=== PATIENT | male | born 1955 | race Caucasian/White ===

== ENCOUNTER 2020-05-14 12:41 | Outpatient (REF) | payer OTHER, BC, SELFPAY | END 2020-05-14 12:42 | disposition home or self-care (01) | LOC: HO.LNP 12:41 | PROVIDERS: PCP Internal Medicine; Visit Provider Surgery | DX: Z13.89 Encounter for screening for other disorder (principal) ==

== ENCOUNTER 2020-05-14 15:22 | Outpatient (REF) | payer OTHER, SELFPAY | END 2020-05-14 15:23 | disposition home or self-care (01) | LOC: HO.LAB 15:22 | PROVIDERS: Visit Provider Surgery | DX: M79.5 Residual foreign body in soft tissue (principal) | CPT/HCPCS: 88300 ==

== ENCOUNTER 2020-06-18 17:00 | Outpatient (REF) | payer OTHER, SELFPAY | END 2020-06-18 17:01 | disposition home or self-care (01) | LOC: HO.LNP 17:00 | PROVIDERS: Visit Provider Internal Medicine | DX: L02.611 Cutaneous abscess of right foot (principal) | CPT/HCPCS: 87071; 87077; 87186; 87205 ==

== ENCOUNTER 2021-01-04 14:11 | Outpatient (REF) | payer BC, SELFPAY ==
[2021-01-04 15:07] LABS: Influenza A PCR NEGATIVE (Negative); Influenza B PCR NEGATIVE (Negative); Resp Syncy Virus RNA Qual PCR NEGATIVE (Negative); SARS COV2 PCR INHOUSE NEGATIVE (Negative)
== END 2021-01-04 14:12 | disposition home or self-care (01) ==
LOC: HO.LNP 14:11
PROVIDERS: Visit Provider Internal Medicine
DX: Z20.822 Contact with and (suspected) exposure to COVID-19 (principal); R51.9 Headache, unspecified
CPT/HCPCS: 0241U

== ENCOUNTER 2021-01-14 14:57 | Outpatient (REF) | payer BC, SELFPAY ==
[2021-01-14 15:15] LABS: MANUAL DIFF FLAG NO
[2021-01-14 15:56] LABS: Basophils Percent Auto 0.7 % (0-2); Eosinophils Absolute Auto 0.1 X10*3/uL (0.0-0.4); Eosinophils Percent Auto 1.2 % (0-4); Hematocrit 40.9 % (42.0-52.0); Hemoglobin 13.4 g/dl (14.0-18.0); Imm Gran Abs Auto 0.01 X10*3/uL (0.00-0.03); Imm Gran Pct Auto 0.2 % (0.0-0.4); Lymphocytes Absolute Auto 1.4 X10*3/uL (1.2-4.9); Lymphocytes Percent Auto 23.3 % (20-40); Mean Corpuscular HGB Conc 32.8 g/dl (31.0-36.0); Mean Corpuscular Hemoglobin 29.7 pg (27.0-33.0); Mean Corpuscular Volume 90.7 fL (80.0-98.0); Mean Platelet Volume 9.9 fL (9.4-12.4); Monocytes Absolute Auto 0.3 X10*3/uL (0.1-1.2); Monocytes Percent Auto 5.3 % (2-11); Neutrophils Absolute Auto 4.18 x10*3/uL (2.0-8.3); Neutrophils Percent Auto 69.3 % (45-73); Platelet Count 242 X10*3/uL (160-400); Red Blood Count 4.51 X10*6/uL (4.60-5.80); Red Cell Distribution Width 13.1 % (11.0-16.0)
[2021-01-14 16:17] LABS: Appearance Urine CLEAR; Color Urine YELLOW; Glucose Urine UA NEG (NEG); Leukocyte Esterase Urine NEG (NEG); Nitrite Urine NEG (NEG); PH 5.5 (5.0-8.0); Specific Gravity - Urine >= 1.030 (1.005-1.025); Urine Blood NEG (NEG); Urine Ketones NEG (NEG); Urine Protein 1+ MG/DL (NEG-TRACE)
[2021-01-14 16:21] LABS: Albumin Level 4.4 g/dL (3.5-5.0); Anion Gap 14 (12-20); Blood Urea Nitrogen 22 mg/dL (9-16); Calcium 9.2 mg/dL (8.4-10.2); Carbon Dioxide 27 mmol/L (22-29); Chloride 106 mmol/L (96-108); Estimated Glomerular Filt Rate > 60; Phosphorus 4.7 mg/dL (2.7-4.5); Potassium 4.7 mmol/L (3.3-5.1); Sodium 142 mmol/L (135-145); Total Protein 7.4 g/dL (6.5-8.0)
[2021-01-14 16:25] LABS: RBC Urine 0 /HPF (0); Squamous Epithelial Cell Urine 1+ /LPF; WBC Urine 0 /HPF (0-4)
[2021-01-14 16:36] LABS: Creatinine Urine 197.15 mg/dL; Protein/Creatinine Ratio, Ur 0.13 (<0.2); Total Protein Urine Random 25 mg/dL (<12)
[2021-01-14 17:25] LABS: Renal w Reflex Lab Use Only Order verified
== END 2021-01-14 14:58 | disposition home or self-care (01) ==
LOC: HO.LAB 14:57
PROVIDERS: PCP Internal Medicine; Visit Provider Internal Medicine Nephrology
DX: R80.9 Proteinuria, unspecified (principal); M32.9 Systemic lupus erythematosus, unspecified
CPT/HCPCS: 36415; 80051; 81001; 82040; 82043; 82310; 82565; 83735; 84100; 84155; 84156; 84520; 85025

== ENCOUNTER 2021-05-28 14:01 | Outpatient (REF) | payer BC, SELFPAY ==
--- NOTE | ~2021-05-28 | XR_ITS ---
EXAMINATION: XR SHOULDER, RIGHT CLINICAL INFORMATION: Status post fall, right shoulder pain COMPARISON: None TECHNIQUE: AP external rotation, Grashey, scapular Y, and axillary views of the right shoulder. FINDINGS: The bones and soft tissues are normal. No fracture. Glenohumeral and acromioclavicular alignment is anatomic with normal joint space. No abnormal soft tissue calcifications. XR/XR shoulder RT min 2V IMPRESSION: Unremarkable right shoulder exam
== END 2021-05-28 14:02 | disposition home or self-care (01) ==
LOC: HO.XRAY 14:01
PROVIDERS: PCP Internal Medicine; Visit Provider Internal Medicine
DX: M25.511 Pain in right shoulder (principal); Z91.81 History of falling
CPT/HCPCS: 73030

== ENCOUNTER 2021-06-17 11:19 | Day surgery (SDC) | payer BC, SELFPAY ==
--- NOTE | 2021-06-14 09:33 | P.CONAN_ITS ---
Documented by User: Eve Shields NP 06/14/21 09:34 HPI - Anesthesia Eval Consult details Narrative: 66yo M for Colonoscopy Prednisone 2.5mg daily (lupus) PMFSH Active Problems Active Problems: All Active Problems (Updated 06/11/21 @ 15:48 by Nancy Perry RN) Foreign body (FB) in soft tissue (Acute) Past Medical History Medical History (Updated 06/11/21 @ 15:48 by Nancy Perry RN) Elevated cholesterol Foreign body (FB) in soft tissue History of myocardial infarction Hx of Lyme disease Lupus On beta vera at home Family History Family History Father History of diabetes mellitus Mother History of hypertension Surgical History Surgical History (Updated 06/11/21 @ 15:46 by Nancy Perry RN) History of carpal tunnel surgery History of knee surgery History of microdiscectomy History of shoulder surgery History of surgery on arm Hx of colonoscopy Social History Social History Alcohol intake: current Alcohol intake frequency: holidays/special occasions only Patient Tobacco Use Status: Never used Tobacco Use of substances other than those prescribed or required for medical reasons: No Are you DNR?: No Advance Directives: No Advance Directives Information Provided: Yes Recently lost weight without trying: No Nutrition Risks: No Nutritional Risk Meds Allergies Allergy/AdvReac Type Severity Reaction Status Date / Time ciprofloxacin [From Cipro] Allergy Mild RASH Verified 06/17/21 11:50 Penicillins Allergy Mild RASH Verified 06/17/21 11:50 Sulfa (Sulfonamide Allergy Unknown Rash Verified 06/17/21 11:50 Antibiotics) Home Medications Medication Instructions Recorded Confirmed Last Taken Type aspirin 81 mg tablet,delayed 81 mg PO DAILY 05/14/20 06/11/21 Unknown History release (Adult Low Dose Aspirin) atorvastatin 80 mg tablet 80 mg PO DAILY 05/14/20 06/11/21 Unknown History doxycycline hyclate 100 mg capsule 100 mg PO BID 05/14/20 06/11/21 Unknown History hydroxychloroquine 200 mg tablet 200 mg PO BID 05/14/20 06/11/21 06/17/21 History metoprolol succinate 25 mg 25 mg PO DAILY 03/01/21 03/29/22 04/04/22 History tablet,extended release 24 hr prednisone 2.5 mg tablet 2.5 mg PO QAM 05/14/20 06/11/21 06/17/21 History Exam Exam Date and Time: June 14, [id number] Pertinent Lab Results Pertinent Lab Results: Laboratory Tests 01/14/21 01/14/21 15:13 15:13 WBC 6.0 Hgb 13.4 L Hct 40.9 L Plt Count 242 Sodium 142 Potassium 4.7 Chloride 106 Carbon Dioxide 27 BUN 22 H Creatinine 1.12 Assessment and Plan Assessment Anesthesia Assessment: Chart Reviewed Documented by User: Sha Malloy MD 06/17/21 21:17 HPI - Anesthesia Eval Consult details Narrative: 66yo M for Colonoscopy silent [place] , 5 years ago . Prednisone 2.5mg daily (lupus) [facility] Past Medical History Medical History (Updated 06/11/21 @ 15:48 by Nancy Perry RN) Elevated cholesterol Foreign body (FB) in soft tissue History of myocardial infarction Hx of Lyme disease Lupus On beta vera at home Functional capacity: independent ambulation Family History Family History Father History of diabetes mellitus Mother History of hypertension Family history of problems with anesthesia: Yes (Brother under anesthesia . ) Surgical History Surgical History (Updated 06/11/21 @ 15:46 by Nancy Perry RN) History of carpal tunnel surgery History of knee surgery History of microdiscectomy History of shoulder surgery History of surgery on arm Hx of colonoscopy History of Problems with Anesthesia: No Social History Social History Alcohol intake: current Alcohol intake frequency: holidays/special occasions only Patient Tobacco Use Status: Never used Tobacco Use of substances other than those prescribed or required for medical reasons: No Are you DNR?: No Advance Directives: No Advance Directives Information Provided: Yes Recently lost weight without trying: No Nutrition Risks: No Nutritional Risk Meds Allergies Allergy/AdvReac Type Severity Reaction Status Date / Time ciprofloxacin [From Cipro] Allergy Mild RASH Verified 06/17/21 11:50 Penicillins Allergy Mild RASH Verified 06/17/21 11:50 Sulfa (Sulfonamide Allergy Unknown Rash Verified 06/17/21 11:50 Antibiotics) Home Medications Medication Instructions Recorded Confirmed Last Taken Type aspirin 81 mg tablet,delayed 81 mg PO DAILY 05/14/20 06/11/21 Unknown History release (Adult Low Dose Aspirin) atorvastatin 80 mg tablet 80 mg PO DAILY 05/14/20 06/11/21 Unknown History doxycycline hyclate 100 mg capsule 100 mg PO BID 05/14/20 06/11/21 Unknown History hydroxychloroquine 200 mg tablet 200 mg PO BID 05/14/20 06/11/21 06/17/21 History metoprolol succinate 25 mg 25 mg PO DAILY 05/14/20 06/11/21 06/17/21 History tablet,extended release 24 hr prednisone 2.5 mg tablet 2.5 mg PO QAM 05/14/20 06/11/21 06/17/21 History Exam Airway Mallampati Class: III TM Dist: >3cm Neck ROM: Full Loose/Missing/Broken Teeth: Yes (Chipped ) Heart: rrr Lungs: b/l breath sounds Assessment and Plan Assessment Anesthesia Assessment: Anesthesia Plan Discussed Final Anesthetic Review Family History of Problems with Anesthesia: Yes (Brother under anesthesia . ) History of Problems with Anesthesia: No NPO: Yes ASA Class: III Final Preanesthetic Review: Meds/Allgs Chart Reviewed, Consent Obtained/Reviewed and Anes Risks/Benef Reviewed Patient Risk: Intermediate Procedure Risk: Intermediate Anesthetic Plan Anesthetic Plan: MAC: Disposition: Standard PACU
[2021-06-17 11:53] VITALS: BMI 28.8
[2021-06-17 12:01] VITALS: BP 133/65; PULSE 76; RESP 16; TEMP 36.5; O2SAT 94
[2021-06-17] MEDS: Lactated Ringers 1,000 ML 100 ML IVCONT (12:17)
[2021-06-17 14:12] VITALS: BP 108/59; PULSE 54; RESP 14; TEMP 36.3; O2SAT 96
--- NOTE | 2021-06-17 14:12 | PM.OP ---
Brief Operative Note Date of Service: 06/17/21 Pre-op diagnosis: Screening Post-op diagnosis: other (Diverticulosis) Procedure: Colonoscopy to the cecum and TI Surgeon: Ezequiel Aguayo Anesthesia: MAC Was an Rubber Belt Splicer used for this Procedure?: No Estimated blood loss (mL): 0 Pathology: none sent Condition: stable Disposition: PACU
[2021-06-17 14:27] VITALS: BP 103/62; PULSE 62; RESP 18; TEMP 36.2; O2SAT 97
--- NOTE | 2021-06-18 01:01 | OP_ITS ---
SURGEON: Ezequiel Aguayo MD INDICATIONS: The patient presents for evaluation of colorectal cancer screening. Full consent obtained from him for this, including risks of bleeding and perforation. PREOPERATIVE DIAGNOSIS: Colorectal cancer screening. POSTOPERATIVE DIAGNOSIS: PROCEDURE PERFORMED: Colonoscopy to the cecum and terminal ileum. ESTIMATED BLOOD LOSS: COMPLICATIONS: ANESTHESIA: Monitored anesthesia care. ASSISTANTS: SPECIMENS: POSTOPERATIVE DIAGNOSES: Colorectal cancer screening, sigmoid diverticulosis, and internal hemorrhoids. DESCRIPTION OF PROCEDURE: The patient was placed in the left lateral decubitus position. The digital rectal exam revealed no abnormalities. The Olympus video pediatric colonoscope was entered into the rectum advanced easily to the cecum. Once in the cecum, I did identify normal-appearing cecal pouch with appendiceal orifice and a normal-appearing ileocecal valve. The terminal ileum was cannulated and appeared normal. Scope was withdrawn back in the colon. The entire cecum and ileocecal valve appeared normal. The scope was slowly withdrawn assessing all mucosal surfaces carefully. Preparation was excellent. I did not visualize any sign of polyps, colitis, nor angiodysplasia. There was a mild amount of sigmoid diverticulosis. In the rectum, scope was retroflexed visualizing internal hemorrhoids, but no other pathology. The rectal mucosa appeared normal. Scope was straightened and withdrawn from the patient. He tolerated the procedure well and was returned to the recovery area in stable condition. IMPRESSION: 1. Diverticulosis. 2. Internal hemorrhoids. PLAN: Given the negative exam and negative family history, I would recommend a followup colonoscopy in 10 years. He will otherwise see me on a p.r.n. basis. He was advised to resume his aspirin today. MD JUN Lozoya/SERA / [id number]
== END 2021-06-17 15:23 | disposition home or self-care (01) ==
PROVIDERS: PCP Internal Medicine; Visit Provider Internal Medicine
PROC: 0DJD8ZZ Inspection of Lower Intestinal Tract, Via Natural or Artificial Opening Endoscopic (ICD-10-PCS; CPT 45378; principal; 2021-06-17 12:40)
DX: Z12.11 Encounter for screening for malignant neoplasm of colon (principal); K57.30 Diverticulosis of large intestine without perforation or abscess without bleeding; K64.8 Other hemorrhoids; I25.2 Old myocardial infarction; M32.8 Other forms of systemic lupus erythematosus; Z86.19 Personal history of other infectious and parasitic diseases; Z79.82 Long term (current) use of aspirin; Z79.899 Other long term (current) drug therapy
CPT/HCPCS: 45378

== ENCOUNTER 2021-11-22 16:36 | Outpatient (REF) | payer BC, SELFPAY ==
[2021-11-22 17:24] LABS: Influenza A PCR NEGATIVE (Negative); Influenza B PCR NEGATIVE (Negative); Resp Syncy Virus RNA Qual PCR NEGATIVE (Negative); SARS COV2 PCR INHOUSE POSITIVE (Negative)
== END 2021-11-22 16:37 | disposition home or self-care (01) ==
LOC: HO.LNP 16:36
PROVIDERS: Visit Provider Internal Medicine
DX: Z20.822 Contact with and (suspected) exposure to COVID-19 (principal); R05.9 Cough, unspecified
CPT/HCPCS: 0241U

== ENCOUNTER 2022-01-29 16:09 | Outpatient (REF) | payer BC, SELFPAY ==
[2022-01-29 17:16] LABS: Influenza A PCR NEGATIVE (Negative); Influenza B PCR NEGATIVE (Negative); Resp Syncy Virus RNA Qual PCR NEGATIVE (Negative); SARS COV2 PCR INHOUSE NEGATIVE (Negative)
== END 2022-01-29 16:10 | disposition home or self-care (01) ==
LOC: HO.LNP 16:09
PROVIDERS: Visit Provider Internal Medicine
DX: R05.9 Cough, unspecified (principal); R06.2 Wheezing; Z20.822 Contact with and (suspected) exposure to COVID-19
CPT/HCPCS: 0241U

== ENCOUNTER 2023-06-26 15:24 | Outpatient (REF) | payer MEDICARE, SELFPAY | END 2023-06-26 15:25 | disposition home or self-care (01) | LOC: HO.LNP 15:24 | PROVIDERS: Visit Provider Internal Medicine | DX: Z22.322 Carrier or suspected carrier of Methicillin resistant Staphylococcus aureus (principal) | CPT/HCPCS: 87081 ==

== ENCOUNTER 2024-02-15 14:05 | Outpatient (REF) | payer MEDICARE, SELFPAY ==
[2024-02-15 16:03] LABS: Appearance Urine Clear; Color Urine Yellow; Glucose Urine UA Negative (Negative); Leukocyte Esterase Urine Negative (Negative); Nitrite Urine Negative (Negative); PH 5.5 (5.0-9.0); Specific Gravity - Urine 1.025 (1.005-1.025); Urine Blood Negative (Negative); Urine Ketones Trace mg/dL (Negative); Urine Protein Trace mg/dL (Neg-Trace)
[2024-02-15 17:12] LABS: Anion Gap 13 (12-20); Blood Urea Nitrogen 23 mg/dL (9-16); Calcium 9.2 mg/dL (8.4-10.2); Carbon Dioxide 26 mmol/L (22-29); Chloride 105 mmol/L (96-108); Estimated Glomerular Filt Rate 59; Sodium 140 mmol/L (135-145)
[2024-02-15 17:15] LABS: Creatinine Urine 158.74 mg/dL; Microalbum/Creatinine Ratio Ur 52.9 ug/mg cr (<30); Total Protein Urine Random 16 mg/dL (<12)
== END 2024-02-15 14:06 | disposition home or self-care (01) ==
LOC: HO.LAB 14:05
PROVIDERS: PCP Internal Medicine; Visit Provider Internal Medicine Nephrology
DX: R80.1 Persistent proteinuria, unspecified (principal); M32.9 Systemic lupus erythematosus, unspecified
CPT/HCPCS: 36415; 80051; 81003; 82043; 82310; 82565; 82570; 84156; 84520

== ENCOUNTER 2024-10-27 14:12 | Outpatient (AMB) | payer MEDICARE, SELFPAY ==
--- NOTE | 2024-10-27 14:47 | A.OFFPC_ITS ---
Vital Signs 10/27/24 15:00 Height 6 ft 1 in Weight 199 lb 2 oz BMI 26.3 BP 112/60 Blood Pressure Location Rt brachial Pulse 63 Pulse Source Pulse Oximeter Temp 97.0 F Temp Source Temporal Artery Scan Pulse Oximetry (%) 96 Oxygen Delivery Method Room Air Intake Visit Reasons: [employer] Intake Note: Jerrod presents in the office today to establish care. Allergies ciprofloxacin (From Cipro) Allergy (Mild, Verified 10/27/24 14:48) RASH Penicillins Allergy (Mild, Verified 10/27/24 14:48) RASH Sulfa (Sulfonamide Antibiotics) Allergy (Unknown, Verified 10/27/24 14:48) Rash Medication List - Last Reconciled 10/27/24 by Criss Persaud PA-C antiarthritic combination no.2 (glucosamine-chondroitin) mg PO aspirin (Adult Low Dose Aspirin) 81 mg PO DAILY atorvastatin 80 mg PO DAILY cholecalciferol (vitamin D3) 125 mcg PO DAILY hydroxychloroquine 200 mg PO BID metoprolol succinate ER 25 mg PO DAILY multivitamin (Daily Multi-Vitamin tablet) 1 tab PO DAILY omega-3 fatty acids 500 mg PO DAILY prednisone Patient takes 3.0 mg orally every morning; Tobacco use date assessed: 10/27/24 Dental Screening Dental Screen Date: 10/27/24 Did you have a dental visit in the last 12 months?: Yes Did you have a dental problem in the last 6 months where you did not have access to dental care?: Yes Was dental information given to patient?: Patient has dentist HPI [employer] HPI Details Pt is a 69 y/o male who presents today to establish care. He has a hx of lyme disease, lupus, previous VA, CKD Rheum: lupus was triggered by lyme. He is following with [facility] gen rheumatology, Dr. Chung. He is on hydroxychloroquine. Pulm: saw Dr. Silva following lupus dx and has not needed to been seen since 2021. CV: He follows with Dr. Marcus for the last 10 years due to previous VA. He is on metoprolol 25 mg, atorvastatin 80 mg, and aspirin. Nephro: stable CKD. Managed by Dr. Schaffer. Colonoscopy: 2020 UTD, cologuard PSA: overdue Ophthamology: Dr. Lopez [facility] Medical History (Updated 10/27/24 @ 15:14 by Criss Persaud PA-C) Elevated cholesterol On beta vera at home Lupus History of myocardial infarction Hx of Lyme disease Foreign body (FB) in soft tissue Surgical History (Updated 09/20/24 @ 13:12 by Sandhya Sandra) Hx of colonoscopy (~06/18/21) History of surgery on arm History of microdiscectomy History of knee surgery History of carpal tunnel surgery History of shoulder surgery Family History (Updated 10/27/24 @ 14:59 by Sydney Matthews MA) Father History of diabetes mellitus History of hypertension Hyperlipemia Cardiovascular disease Mother History of hypertension History of diabetes mellitus Hyperlipemia Cardiovascular disease FHx: mental illness Dementia Maternal Grandfather Cardiovascular disease Heart attack Maternal Grandmother Cardiovascular disease Heart attack Paternal Grandmother Cardiovascular disease Heart attack Social History (Updated 10/27/24 @ 14:59 by Sydney Matthews MA) Housing: House Alcohol intake: current Alcohol intake frequency: holidays/special occasions only Patient Tobacco Use Status: Never used Tobacco e-Cigarette/Vaping Use: Never Used Second Hand Smoke Exposure: No service: No Current occupational status: retired Current occupational exposures/hazards: No Cognitive needs: No Hearing needs: No Vision needs: No Questionnaire PHQ-9 Over the last 2 weeks, how often have you been bothered by any of the following problems? 1. Little interest or pleasure in doing things: not at all 2. Feeling down, depressed, or hopeless: not at all 3. Trouble falling or staying asleep, or sleeping too much: not at all 4. Feeling tired or having little energy: not at all 5. Poor appetite or overeating: not at all 6. Feeling bad about yourself - or that you are a failure or have let yourself or your family down: not at all 7. Trouble concentrating on things, such as reading the newspaper or watching television: not at all 8. Moving or speaking so slowly that other people could have noticed. Or the opposite - being so fidgety or restless that you have been moving around a lot more than usual: not at all 9. Thoughts that you would be better off or of hurting yourself in some way: not at all Total score: 0 Depression Screening Interpretation: Negative Depression Screening Done: Yes 53924 - PHQ-9 Billing: Yes Source: Developed by Drs. Ezequiel Felix, Clari Wolfe, Jus Almeida and colleagues, with an educational baljit from [employer]. Thrive Questionnaire Date Thrive assessed: 10/27/24 I am a: Patient What is your living situation today?: I have a steady place to live Within the past 12 months, did the food you bought not last and you didn't have the money to get more?: Never true Within the past 12 months, did you worry whether your food would run out before you got money to buy more?: Never true Do you have trouble paying for medicines?: No Do you have trouble getting transportation to medical appointments?: No Do you have trouble paying your heating and electricity bill?: No Do you have trouble taking care of your child, family member or friend?: No Do you have trouble with day-to-day activities such as bathing, preparing meals, shopping, managing finances, etc.?: No Are you currently unemployed and looking for a job?: No Are you interested in more education?: No Please select the resources that you would like help with: None Currently or been in a relationship where the following occur: No concerns reported THRIVE Score: 0 AUDIT C Alcohol Use Questionnaire (AUDIT-C) 1. How often do you have a drink containing alcohol?: 2-4 times a month 2. How many drinks containing alcohol do you have on a typical day when you are drinking?: 1 or 2 3. How often do you have six or more drinks on one occasion?: Never Total Score: 2 GINI-7 AMB Questionnaire GINI-7 Date GINI - 7 assessed: 10/27/24 Feeling nervous, anxious, or on edge: 0 = Not at all Not being able to stop or control worryin = Not at all Worrying too much about different things: 0 = Not at all Trouble relaxin = Not at all Being so restless that it is hard to sit still: 0 = Not at all Becoming easily annoyed or irritable: 0 = Not at all Feeling afraid as if something awful might happen: 0 = Not at all Total GINI-7 score (0-4 normal; 5-9 mild; 10-14 moderate; 15-21 severe): 0 Source: Developed by Clari Mcknight Kurt Kroenke and colleagues, with an educational baljit from [employer]. GINI-7 Assessment Billing GINI-7 Assessment Tool: GINI-7 Assessment 16537 Physical exam (Primary Care) Vital Signs: Last Vital Signs Temp 97.0 F 10/27/24 15:00 Pulse 63 10/27/24 15:00 BP 112/60 10/27/24 15:00 Pulse Ox 96 10/27/24 15:00 Oxygen Delivery Method Room Air 10/27/24 15:00 BMI result Body Mass Index 26.3 Tobacco/Smoking Status: Tobacco use Status Tobacco use date assessed 10/27/24 10/27/24 15:02 Patient Tobacco Use Status Never used Tobacco 10/27/24 15:02 e-Cigarette/Vaping Use Never Used 10/27/24 15:02 PHQ-9: PHQ-9 Score PHQ-9: Total score 0 10/27/24 15:02 Depression Screening Interpretation: Negative Thrive Assessment: Date of Thrive Assessment Date Thrive assessed 10/27/24 10/27/24 15:02 Currently or been in a relationship where the following occur: No concerns reported Const Orientation/consciousness: patient oriented x3 HENMT Ears: hearing grossly normal bilaterally Neck Thyroid: Thyroid normal Lymphatic: no lymphadenopathy noted Resp Auscultation: clear to auscultation bilaterally Cardio Rate: regular rate Rhythm: regular rhythm Heart sounds: S1 normal heart sound present and S2 normal heart sound present GI Inspection: Yes normal to inspection Palpation (GI): Soft to palpation and Other GI palpation findings present (nontender, no cva tenderness) Auscultation: normoactive bowel sounds Rectal Exam - Male: Yes deferred Skin General skin exam: no rashes or lesions noted Neuro General: patient oriented x3, gait normal and no focal motor deficits Coding Level of Care Code New Pt Level 3 (26054) Complex EM visit Add On G2211 Diagnoses Hyperlipidemia E78.5 Lupus (systemic lupus erythematosus) M32.9 CKD (chronic kidney disease) stage 3, GFR 30-59 ml/min N18.30 Additional Codes GINI-7 Assessment Billing - GINI-7 Assessment Tool: GINI-7 Assessment 37497 ([id number]) PHQ-9 - 44769 - PHQ-9 Billing: Yes ([id number]) Assessment & Plan Assessment & Plan (1) Hyperlipidemia: Code(s): E78.5 - Hyperlipidemia, unspecified Category: Medical Plan: On atorvastatin 80 mg. We will check lipids and LFTs. (2) Lupus (systemic lupus erythematosus): Code(s): M32.9 - Systemic lupus erythematosus, unspecified Category: Medical Plan: Being managed by [facility] (3) CKD (chronic kidney disease) stage 3, GFR 30-59 ml/min: Code(s): N18.30 - Chronic kidney disease, stage 3 unspecified Category: Medical Plan: Has been stable. Following with Nephrology. Avoids NSAIDs. Plan Labs ordered today. We will follow up pending test results. Orders: Orders Comprehensive [place]. Panel Fast 10/27/24 E78.5 - Hyperlipidemia, unspecified, M32.9 - Systemic lupus erythematosus, unspecified, N18.30 - Chronic kidney disease, stage 3 unspecified Lipid Panel 10/27/24 E78.5 - Hyperlipidemia, unspecified, M32.9 - Systemic lupus erythematosus, unspecified, N18.30 - Chronic kidney disease, stage 3 unspecified TSH reflex Free T4 10/27/24 E78.5 - Hyperlipidemia, unspecified, M32.9 - Systemic lupus erythematosus, unspecified, N18.30 - Chronic kidney disease, stage 3 unspecified Prostate Specific Antigen Scr 10/27/24 E78.5 - Hyperlipidemia, unspecified, M32.9 - Systemic lupus erythematosus, unspecified, N18.30 - Chronic kidney disease, stage 3 unspecified, Z01.89 - Encounter for other specified special examinations
--- OUTSIDE RECORDS SUMMARY | 2024-10-27 14:59 | XMS_ITS | Patient Health Record ---
[facility] Address [address] [place] [address] Care Team Providers Care Dietitian Assistant Name Role Phone Christopher Garcia MD Primary Care Provider Unavaila suellen Black, Jill Unavailable [phone] Allergies Allergen (clinical drug ingredient) Drug/Non Drug Allergy documented on EMR Reaction Allergy Type Onset Date Status Penicillin Unknown Drug Allergy Active Substance with sulfonamide structure and antibacterial mechanism of action (substance) Sulfa Antibiotics Unknown Drug Allergy Active Reason For Referral No Information Medications Medication SIG (Take, Route, Frequency, Duration) Notes Start Date End Date Status Vitamin D Active Baby Aspirin Active Doxycycline Hyclate 100 MG Oral; Duration: 10 Active Glucosamine Chondr 500 Complex - as directed Orally Active Daily Vitamin - 1 tablet Orally Once a day; Duration: 30 day(s) Active predniSONE 2.5 MG 1 tablet Orally Once a day; Duration: 30 day(s) Active Plaquenil 200 MG as directed Orally Active Social History Tobacco Use: Social History Observation Description Date Details (start date - stop date) Never Smoker NA - NA Tobacco Use/Smoking Question Answer Notes Are you a: nonsmoker Additional Findings: Tobacco Non-User Current no n-smoker Alcohol Screen Question Answer Notes Did you have a drink containing alcohol in the p ast year? Yes Points 0 Interpretation Negative Tobacco use other than smoking: Question Answer Notes Are you an other tobacco user? No Problems No Known Problems Plan Of Treatment Pending Test Test Name Order Date 95206- Removal of Foreign Body, Subcut 0 05/14/2020 Insurance Providers Payer Name Payer Address Payer Phone Subscriber Number Group Number Insured Name Patient Relationship to Insured Coverage Start Date Coverage End Date [facility] [address] [place] [address] [id number] Jerrod Post Self - patient is the insured Medical (General) History Medical History History ICD Code Lupus Chicken pox Pin in bicep Heart attack Surgical History Surgery Date(Month/Year) knee surgery, right carpal tunnel surgery back surgery shoulder surgery R 08/2019 Hospitalization History Reason Date(Month/Year) Urgent Care deep splint not able to brenna ve 05/13/2020
[2024-10-27 15:00] VITALS: BP 112/60; PULSE 63; TEMP 36.1; O2SAT 96; BMI 26.3
--- OUTSIDE RECORDS SUMMARY | 2024-10-27 15:00 | XMS_ITS | Clinical Summary ---
Author Organization [facility] Facility Address [address] [address] Care Team Providers Care Word Processor Technician Name Role Phone Christopher Garcia MD Primary Care Provider Allergies Active Allergy Reactions Criticality Noted Date Comments Ciprofloxacin 02/13/2023 Other reaction(s): Unknown Penicillins Other (see comments) 02/25/2016 Sulfa Antibiotics Rash,Other (see comments) Low 02/25/2016 Medications predniSONE (DELTASONE) 1 MG tablet Take 2.5 tablets by mouth 1 (one) time each day Active hydroxychloroqu ine (PLAQUENIL) 200 MG tablet Take 2 tablets by mouth 1 (one) time each day 03/05/2020 Active atorvastatin (LIPITOR) 20 MG tablet Take 1 tablet by mouth 1 (one) time each day Active aspirin (ST DINA) 81 MG EC tablet Take 1 tablet by mouth 1 (one) time each day Active ascorbic acid (VITAMIN C) 500 MG CR capsule Take 1 capsule by mouth 1 (one) time each day Active Active Problems Problem Noted Date Diagnosed Date Preprocedural examination done 02/13/2023 1 04/16/2022 Screening for malignant neoplasm of colon 202202/12/2023 Encounter for other preprocedural examination 02/12/2023 Diverticulosis of colon 02/12/2023 02/13/20 23 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 Silent myocardial infarction 01/27/2022 Systemic lupus erythematosus 01/18/2021 Proteinuria 01/18/2021 Lupus erythematosus 04/25/2016 Immunizations Immunization Administration Dates Next Due Influenza, Quadrivalent, Preservative Free 01/03,03/19/2018 Influenza, Unspecified 11/14/2020 Pfizer SARS-COV-2 06/30/2020,06/09/2020 Family History Medical History Relation Comments Diabetes Father Hypertension Father Heart disease Mother Hypertension Mother Relation Status Comments Father Mother Social History Tobacco Use Types Packs/Day Years Used Date Smoking Tobacco: Never Tobacco Cessation:Counseling Given: Not Answered Alcohol Use Standard Drinks/Week Comments No 0 (1 standard drink = 0.6 oz pur e alcohol) Sex and Gender Information Value Date Recorded Sex Assigned at Not on file Legal Sex Male 4:47 PM EST Gender Identity Not on file Sexual Orientation Not on file Last Filed Vital Signs Vital Sign Reading Time Taken Comments Blood Pressure 110/70 02/15/2024 1:08 PM EST Pulse 69 02/15/2024 1:08 PM EST Temperature - - Respiratory Rate - - Oxygen Saturation 96% 02/15/2024 1:08 PM EST Inhaled Oxygen Concentration - - Weight 99.3 kg (219 lb) 02/15/2024 1:08 PM EST Height 185.4 cm (6' 1 ) 01/23/2020 12:00 PM EST Body Mass Index 28.89 01/23/2020 12:00 PM EST Plan of Treatment Upcoming Encounters Date Type Department Care Team (Late st Contact Info) Description 02/20/2025 1:30 PM EST Office Visit [facility] [address] [place] [address] Samuel Schaffer MD [phone] [facility] [address] [place] [address] Health Maintenance Due Date Last Done Comments Pneumococcal Vaccine: 50+ Years (1 of 2 - PCV) 1976 Colorectal Cancer Screening: Annual FOBT 2006 Colorectal Cancer Screening: Colonoscopy 2006 Colorectal Cancer Screening: Sigmoidoscopy 2006 Influenza Vaccine (#1) 2024 , 01/03/2019, 03/19/2018 Hepatitis B Vaccine Aged Out No longe r eligible based on patient's age to complete this topic Insurance [facility] PPO Blue([id number]) [facility] PPO Blue([id number]) Care Teams Word Processor Technician Relationship Specialty Start Date End Date Christopher Garcia MD [address] [place], [place] PCP - General 03/26/20
--- OUTSIDE RECORDS SUMMARY | 2024-10-27 15:00 | XMS_ITS | Clinical Summary ---
Author Organization [facility] Address [address] [facility] [address] [place] [address] Phone Care Team Providers Care Outreach Nurse Name Role Phone Sivan Mart MD Primary Care Provider Allergies Active Allergy Reactions Criticality Noted Date Comments Penicillins Unknown 02/25/2016 Sulfa (Sulfonamide Antibiotics) Rash Low 02/13 Medications aspirin 81 mg chewable tablet Take 81 mg by mouth daily. Active cholecalciferol (VITAMIN D3) 2,000 unit capsule Take 1,000 Units by mouth daily. Active multivitamins with minerals- folic acid-lycopene (MEN'S ONE-A-DAY) 400-20-300 mcg Tab Take 1 tablet by mouth daily. Active glucosamine HCl/chondroitin rowland (GLUCOSAMINE-CH ONDROITIN ORAL) Take by mouth. Active atorvastatin (LIPITOR) 80 MG tablet Take 80 mg by mouth daily. Active metoprolol succinate (TOPROL-XL) 25 MG 24 hr tablet Take 25 mg by mouth daily. Active omega 4-lyv-fbb-fish oil 1,000 mg (120 mg-180 mg) Cap Take 1 capsule by mouth daily. Active predniSONE (DELTASONE) 1 MG tablet Take 2 mg by mouth daily. Active hydroxychloroqu ine (PLAQUENIL) 200 mg tablet TAKE 1 TABLET BY MOUTH TWICE A DAY 180 tablet 3 05/03/2024 Active predniSONE (DELTASONE) 2.5 MG tablet Take 1 tablet (2.5 mg total) by mouth daily. 90 tablet 3 08/29/2024 Active Active Problems Problem Noted Date Diagnosed Date Lupus 04/25/2016 Encounters Date Type Department Care Team Description 09/09/2024 1:41 PM EDT - 09/09/2024 11:59 PM EDT Hospital Encounter [facility] [address] [place] [address] Loli Chung MD Discharge Disposition: Home or Self Care 08/29/2024 11:20 AM EDT Office Visit [facility] Rheumatology [address], [address] [place] [address] Loli Chung MD Other systemic lupus erythematosus with other organ involvement (Primary Dx); Encounter for medication monitoring; Primary osteoarthritis involving multiple joints from Last 3 Months Immunizations Immunization Administration Dates Next Due COVID-19 (Pre-01/05) Pfizer Vaccine, mRNA, PF ,06/09/2020 Influenza Quadrivalent Preservative Free IM 12/15,03/19/2018 Social History Tobacco Use Types Packs/Day Years Used Date Smoking Tobacco: Never Child or Family Care Answer Date Record ed Do you have problems with on e of the following making it difficult for you to work, study, or receive health care? No 10/09/2023 Education Answer Date Recorded Are you interested in more education? Not on rosa maria e 10/26/2024 Are you concerned about learning? Not on file 10/26/2024 No 10/26/2024 No 10/26/2024 Food Answer Date Recorded Within the past 6 months we worried whether our food would run out before we got money to buy more. Never True 10/09/2023 Within the past 6 months the food we bought just didn't last and we didn't have enough money to get more. Never True Residential Stability Answer Date Recor ded What is your housing situation today? I have faye sing 10/09/2023 How many times have you move d in the past 12 months? Zero (I did not move) 10/09/2023 Paying for Meds Answer Date Recorded Do you have trouble paying for medicines? No 10/09/2023 Paying Utility Bills Answer Date Record ed Do you have trouble paying your heating or elect ricity bill? No 10/14/2022 Transportation Answer Date Recorded Has the lack of transportati on kept you from medical appointments or from getting medications? No 10/09/2023 Unemployment Answer Date Recorded Are you currently unemployed or working on a part-time or temporary basis, and looking for work? No 04/20/2022 Digital Access Answer Date Recorded No 10/09/2023 Yes 10/09/2023 Do you have reliable internet access at home? Ye s 10/09/2023 Do you have a device (e.g., phone, tablet, computer) with a working camera? Yes 10/09/2023 Sex and Gender Information Value Date Recorded Sex Assigned at Male 04/18/2022 12:04 PM EST Legal Sex Male 11:37 AM EDT Gender Identity Male 01/16/2020 9:21 AM EST Sexual Orientation Straight 01/16/2020 9: 21 AM EST Last Filed Vital Signs Vital Sign Reading Time Taken Comments Blood Pressure 148/70 08/29/2024 11:20 AM EDT Pulse 64 08/29/2024 11:20 AM EDT Temperature 35.9 C (96.6 F) 08/29/2024 11:20 AM EDT Respiratory Rate 18 04/23/2016 1:11 PM EST Oxygen Saturation 97% 08/29/2024 11:20 AM EDT Inhaled Oxygen Concentration - - Weight 90.9 kg (200 lb 6.4 oz) 08/29/2024 11:20 AM EDT Height 185.4 cm (6' 1 ) 08/29/2024 11:20 AM EDT Body Mass Index 26.44 08/29/2024 11:20 AM EDT Plan of Treatment Upcoming Encounters Date Type Department Care Team (Late st Contact Info) Description 03/20/2025 11:00 AM EST Office Visit [facility] Rheumatology [address], [address] [place] [id number] Loli Chung MD [address] [facility] [address] [place] [id number] [email or web address] Health Maintenance Due Date Last Done Comments Adult Td,Tdap Booster 1957 DEPRESSION SCREENING 1969 HEPATITIS C SCREENING 1975 COLONOSCOPY 2002 FIT TEST 2002 FOBT 2002 SIGMOIDOSCOPY 2002 VIRTUAL COLONOSCOPY 2002 ZOSTER VACCINES (1 of 2) 2007 COVID-19 VACCINE ( season) 2023 01/08/2023, 07/04/2021, 01/28/2021, Additional history exists LIPID PANEL 01/04/2024 01/03/2019 COLOGUARD 01/26/2027 01/27/2024 COLORECTAL CANCER SCREENING 01/26/2027 SCREENING FOR DIABETES 09/10/2027 09/09/2024 SMOKING STATUS SCREENING (Once After 26 Yrs) Completed 08/28/2016 RSV VACCINE Completed 11/27/2022 PNEUMOCOCCAL VACCINES (50+ years) Completed 05/25/2024 HEPATITIS A VACCINES Aged Out No long er eligible based on patient's age to complete this topic HIB VACCINES Aged Out No longer eligi ble based on patient's age to complete this topic MENINGOCOCCAL VACCINES (ACWY) Aged Out No longer eligible based on patient's age to complete this topic MENINGOCOCCAL VACCINES (B) Aged Out N o longer eligible based on patient's age to complete this topic Medical Devices Not on file Procedures Procedure Name Priority Date/Time Associated Diagnosis Comments URINALYSIS Routine 09/09/2024 2:00 PM EDT Other systemic lupus erythematosus with other organ involvement Encounter for medication monitoring CBC AND DIFFERENTIAL Routine 09/09/2024 1:58 PM EDT Other systemic lupus erythematosus with other organ involvement Encounter for medication monitoring COMPREHENSIVE METABOLIC PANEL Routine 09/09/2024 1:58 PM EDT Other systemic lupus erythematosus with other organ involvement Encounter for medication monitoring C-REACTIVE PROTEIN Routine 09/09/2024 1: 58 PM EDT Other systemic lupus erythematosus with other organ involvement Encounter for medication monitoring SEDIMENTATION RATE (ESR) Routine 09/09/2024 1:58 PM EDT Other systemic lupus erythematosus with other organ involvement Encounter for medication monitoring DOUBLE STRANDED DNA ANTIBODIES Routine 09/09/2024 1:58 PM EDT Other systemic lupus erythematosus with other organ involvement COMPLEMENT C3 Routine 09/09/2024 1:58 PM EDT Other systemic lupus erythematosus with other organ involvement COMPLEMENT C4 Routine 09/09/2024 1:58 PM EDT Other systemic lupus erythematosus with other organ involvement TOTAL PROTEIN CREATININE RATIO, RANDOM URINE Routine 09/09/2024 1:58 PM EDT Other systemic lupus erythematosus with other organ involvement Encounter for medication monitoring LIPID PANEL Routine 01/03/2019 12:23 PM EDT Other forms of systemic lupus erythematosus, unspecified organ involvement status from Last 3 Months or Most Recently Relevant to Health Maintenance Results * Urinalysis (09/09/2024 2:00 PM EDT) COLOR Yellow Yellow [facility] CLARITY Clear [facility] GLUCOSE Negative Negative [facility] BILI Negative Negative [facility] KETONES Negative Negative [facility] SPECIFIC GRAVITY >1.030 1.005 - 1.030 [facility] BLOOD Negative Negative [facility] PH 6.0 5.0 - 8.0 [facility] Protein-UA Negative Negative [facility] NITRITE Negative Negative [facility] Leukocyte esterase, ur Negative Negative [facility] Urine (Urine) 09/09/2024 2:0 0 PM EDT 09/09/2024 2:06 PM EDT us Loli Chung MD URINE ORDERABLES Final Resul t [facility] [address] [place] [address] * TOTAL PROTEIN CREATININE RATIO, RANDOM URINE (09/09/2024 1:58 PM EDT) URINE TOTAL PROTEIN 17.0 mg/dL [facility] URINE CREATININE 128 mg/dL [facility] URINE TP CRE RATIO 0.13 0 - 0.19 [facility] Urine (Urine) 09/09/2024 1:5 8 PM EDT 09/09/2024 2:05 PM EDT Loli Chung MD URINE ORDERABLES Final Resul t Performing Organization Address City/[facility]/ZIP Co de Phone Number [address] [address] * (ABNORMAL) Comprehensive metabolic panel (09/09/2024 1:58 PM EDT) SODIUM 139 133 - 146 mmol/L [facility] POTASSIUM 4.3 3.3 - 5.1 mmol/L [facility] CHLORIDE 103 96 - 108 mmol/L [facility] CO2 27 21 - 35 mmol/L [facility] BUN 20(H) 6 - 19 mg/dL [facility] CREATININE 0.80 0.5 - 1.5 mg/dL [facility] GLUCOSE 114(H) 70 - 99 mg/dL [facility] ALBUMIN 4.3 3.9 - 4.8 g/dL [facility] TOTAL PROTEIN 7.2 6.5 - 8.0 g/dL [facility] CALCIUM 9.0 8.4 - 10.3 mg/dL [facility] ALKALINE PHOSPHATASE 93 39 - 117 U/L [facility] TOTAL BILIRUBIN 0.8 0.0 - 1.2 mg/dL [facility] AST 33 0 - 37 U/L [facility] ALT 28 0 - 40 U/L [facility] GLOBULIN 2.9 1 - 4.8 g/dL [facility] EGFR 97 >59 mL/min/1.7 3m2 [facility] Comment:Estimated glomerular filtration rate calculated using the CKD-EPI refit equation. ANION GAP 13 10 - 20 mmol/L [facility] Blood 09/09/2024 1:58 PM EDT 09/09/2024 2:06 PM EDT Loli Chung MD LAB BLOOD ORDERABLES Final R esult [address] [address] * Double stranded DNA antibodies (09/09/2024 1:58 PM EDT) ANTI DSDNA ANTIBODY Negative at 1:10 [facility] Comment: Performing Physician, Michael Christian M.D., [id number] Normal: Negative at 1:10 To interpret a negative test for anti-[place] or double stranded DNA antibodies in a patient suspected of having systemic lupus erythematosus, the following limitation should be noted. Anti-double stranded DNA antibodies are usually detected in SLE patients with active disease, especially in those with active renal disease. Anti-DNA antibodies are usually not detected in SLE patients with spontaneous or drug-induced remissions. Blood 09/09/2024 1:58 PM EDT 09/09/2024 2:05 PM EDT Loli Chung MD LAB BLOOD ORDERABLES Final R esult Performing Organization Address City/[facility]/ZIP Co de Phone Number [address] [address] * Sedimentation rate (ESR) (09/09/2024 1:58 PM EDT) Pathologist [facility] ESR 14 0 - 20 mm/h [facility] Blood 09/09/2024 1:58 PM EDT 09/09/2024 2:06 PM EDT Loli Chung MD LAB BLOOD ORDERABLES Final R esult Performing Organization Address City/[facility]/ZIP Co de Phone Number [address] [address] * (ABNORMAL) CBC and differential (09/09/2024 1:58 PM EDT) WBC 6.70 4.00 - 11.00 K/uL [facility] RBC 4.49(L) 4.50 - 5.90 M/uL [facility] HGB 13.7 13.5 - 17.5 g/dL [facility] HCT 40.6(L) 41.0 - 53.0 % [facility] PLT 230 150 - 450 K/uL [facility] MCV 90.4 80.0 - 100.0 fL [facility] MCH 30.5 27.0 - 31.0 pg [facility] MCHC 33.7 32.0 - 36.0 g/dL [facility] RDW 13.2 11.5 - 14.5 % [facility] MPV 9.8 8.4 - 12.0 fL [facility] NRBC 0.00 0.00 /100 WBCs [facility] ABSOLUTE NRBC 0.00 0.00 K/uL [facility] DIFF METHOD Auto [facility] NEUTS 74.9 48.0 - 76.0 % [facility] LYMPHS 16.6(L) 18.0 - 41.0 % [facility] MONOS 5.7 4.0 - 11.0 % [facility] EOS 2.1 0.0 - 5.0 % [facility] BASOS 0.6 0.0 - 1.5 % [facility] Granulocytes, immature (%) 0.1 0.0 - 0.9 % [facility] ABSOLUTE NEUTS 5.02 1.92 - 7.60 K/uL [facility] ABSOLUTE LYMPHS 1.11 0.72 - 4.10 K/uL [facility] ABSOLUTE MONOS 0.38 0.16 - 1.10 K/uL [facility] ABSOLUTE EOS 0.14 0.00 - 0.50 K/uL [facility] ABSOLUTE BASOS 0.04 0.00 - 0.15 K/uL [facility] Granulocytes, immature 0.01 0.00 - 0.09 K/uL [facility] Blood 09/09/2024 1:58 PM EDT 09/09/2024 2:06 PM EDT us Loli Chung MD LAB BLOOD ORDERABLES Final R esult [facility] [address] [place] [address] * Complement C3 (09/09/2024 1:58 PM EDT) C3 122 81 - 157 mg/dl [facility] Blood 09/09/2024 1:58 PM EDT 09/09/2024 2:05 PM EDT us Loli Chung MD LAB BLOOD ORDERABLES Final R esult [address] [address] * Complement C4 (09/09/2024 1:58 PM EDT) C4 13 12 - 39 mg/dL [facility] Blood 09/09/2024 1:58 PM EDT 09/09/2024 2:05 PM EDT us Loil Chung MD LAB BLOOD ORDERABLES Final R esult Performing Organization Address City/[facility] Co de Phone Number [address] [address] * C-Reactive Protein (09/09/2024 1:58 PM EDT) C REACTIVE PROTEIN <3.0 0.0 - 4.0 mg/L [facility] Blood 09/09/2024 1:58 PM EDT 09/09/2024 2:06 PM EDT us Loli Chung MD LAB BLOOD ORDERABLES Final R esult Performing Organization Address City/[facility]/ZIP Co de Phone Number [address] [address] * (ABNORMAL) Lipid panel (01/03/2019 12:23 PM EDT) HDL 42 35 - 100 mg/dL [facility] CHOLESTEROL 191 mg/dL [facility] TRIGLYCERIDES 91 40 - 150 mg/dL [facility] LDL 131(H) 50 - 129 mg/dL [facility] CARDIAC RISK RATIO 4.5 0.0 - 5.[address] [facility] NON-HDL CHOLESTEROL 149 mg/dL [facility] Comment:NCEP ATP III guideli juan suggest a non-HDL cholesterol goal 30 mg/dl higher than the patient-specific LDL goal. 01/03/2019 12:2 3 PM EDT 01/03/2019 12:44 PM EDT Loli Chung MD LAB BLOOD ORDERABLES Final R esult [facility] [address] [place] [address] from Last 3 Months or Most Recently Relevant to Health Maintenance Insurance [facility] MEDICARE PPO BLUE REPLACEMENT MEDICARE PART A & B [facility] MEDICARE PPO BLUE REPLACEMENT MEDICARE PART A & [place] [address] [place] [address] MEDICARE PPO BLUE REPLACEMENT [place] [place] [address] MEDICARE PPO BLUE REPLACEMENT [facility] MEDICARE PPO BLUE REPLACEMENT MEDICARE PART A & B [facility] MEDICARE PPO BLUE REPLACEMENT [facility] MEDICARE PPO BLUE REPLACEMENT MEDICARE PART A & B [place] RE[place]AC[place] MEDICARE PART A & B [place] REPLAC[place] MEDICARE PART A & B Care Teams Outreach Nurse Relationship Specialty Start Date End Date Sivan Mart MD [address] [place] [address] [place] [address] PCP - General Internal Medicine 09/21/24 Additional Source Comments The information contained in this document represents components of the legal health record. It is not the complete legal health record.[facility]
== END 2024-10-27 15:18 | disposition home or self-care (01) ==
LOC: HO.HMCFM 14:13
PROVIDERS: PCP Physician Assistant; Visit Provider Physician Assistant
DX: E78.5 Hyperlipidemia, unspecified (principal); M32.9 Systemic lupus erythematosus, unspecified; N18.30 Chronic kidney disease, stage 3 unspecified

== ENCOUNTER → 2024-10-27 14:12 | Outpatient (BNVA) | payer MEDICARE, SELFPAY | PROVIDERS: PCP Physician Assistant; Visit Provider Physician Assistant | DX: N18.30 Chronic kidney disease, stage 3 unspecified (principal); E78.5 Hyperlipidemia, unspecified; M32.9 Systemic lupus erythematosus, unspecified | CPT/HCPCS: 96127; 99202 ==

== ENCOUNTER 2024-11-24 09:18 | Outpatient (REF) | payer MEDICARE, SELFPAY ==
--- OUTSIDE RECORDS SUMMARY | 2024-11-24 10:48 | XMS_ITS | Encounter Summary ---
Author Organization [facility] Address [address] [place] [address] Phone Care Team Providers Care Coke Drawer Hand Name Role Phone Christopher Garcia MD Primary Care Provider Sivan Mart MD Primary Care Provider [phone] Encounter Details Date Type Department Care Team (Late st Contact Info) Description 10/12/2023 Procedure [facility], [address] [id number] Social History Tobacco Use Types Packs/Day Years Used Date Smoking Tobacco: Never Child or Family Care Answer Date Record ed Do you have problems with on e of the following making it difficult for you to work, study, or receive health care? No 10/09/2023 Education Answer Date Recorded Are you interested in help w ith more adult education (for example, completing high school, GED, job training, learning the [place] language, technical skills, or developing parenting skills)? No 10/14/2022 Are you concerned about learning? Not on file 10/14/2022 No 10/14/2022 Yes 10/14/2022 Food Answer Date Recorded Within the past [...] Orientation Straight 01/16/2020 9: 21 AM EST documented as of this encounter Plan of Treatment Upcoming Encounters Date Type Department Care Team (Late st Contact Info) Description 03/20/2025 11:00 AM EST Office Visit [facility] Rheumatology [address], [address] [place] [address] Loli Chung MD [address] [place] [address] [email or web address] documented as of this encounter Visit Diagnoses Not on filedocumented in this encounter Care Teams Coke Drawer Hand Relationship Specialty Start Date End Date Christopher Garcia MD [address] [place] [address] [place] [address] PCP - General Internal Medicine 10/29/15 09/20/24 Sivan Mart MD [address] [place] [address] [place] [address] PCP - General Internal Medicine 09/21/24 documented as of this encounter Additional Source Comments The information contained in this document represents components of the legal health record. It is not the complete legal health record.[facility]
--- OUTSIDE RECORDS SUMMARY | 2024-11-24 10:48 | XMS_ITS | Patient Health Record ---
Author Organization [facility] Address [address] [place] [address] Care Team Providers Care Wader Boot Top Assembler Name Role Phone Christopher Garcia MD Primary Care Provider Unavaila suellen Black, Jill Unavailable [phone] Allergies Allergen (clinical drug ingredient) Drug/Non Drug [...] Treatment Pending Test Test Name Order Date 59035- Removal of Foreign Body, Subcut 0 05/14/2020 Insurance Providers Payer Name Payer Address Payer Phone Subscriber Number Group Number Insured Name Patient Relationship to Insured Coverage Start Date Coverage End Date [facility] [address] [place] [address] [id number] Jerrod Post Self - patient is the insured Medical (General) History Medical History History ICD Code Lupus Chicken pox Pin in bicep Heart attack Surgical History Surgery Date(Month/Year) knee surgery, right carpal tunnel surgery back surgery shoulder surgery R 08/2019 Hospitalization History Reason Date(Month/Year) Urgent Care deep splint not able to brenna ve 05/13/2020
--- OUTSIDE RECORDS SUMMARY | 2024-11-24 10:48 | XMS_ITS | Patient Health Record ---
Author Organization [facility] Address [address] [place] [address] Care Team Providers Care Tank Erector Name Role Phone Radha (RETIRED) Christopher MORA Primary Care Provide r Ezequiel Navarro Unavailable [phone] Allergies Allergen (clinical drug ingredient) Drug/Non Drug Allergy documented on EMR Reaction Allergy Type Onset Date Status Penicillin Unknown Drug Allergy Active ciprofloxacin Ciprofloxacin Unknown Drug Allergy Active Reason For Referral No Information Medications Medication SIG (Take, Route, Frequency, Duration) Notes Start Date End Date Status Glucosamine Chond Cmp Advanc ed - as directed Orally Active Aspir-81 Active Hydroxychloroquine Sulfate 2 00 MG Oral for 90 Active Atorvastatin Calcium 80 MG Oral for 90 Active predniSONE 2.5 MG Oral for 90 Active Metoprolol Succinate ER 25 MG Oral for 90 Active Vitamin D3 25 MCG (1000 UT) 1 tablet Ora lly Once a day for 30 day(s) Active Multivitamin - 1 tablet Orally Once a day for 30 day(s) Active Immunizations Vaccine Route Administration Date Status Comme nts Influenza Unknown 11/14/2020 Administered Problems Problem Type SNOMED Code ICD Code Onset Dates Problem Status W/U Status Risk Notes Problem 691218193 Encounter for screening for malignant neoplasm of colon (Z12.11) Active confirmed Problem 547235259548066 Preprocedural examination (Z01.818) Active confirmed Problem Diverticulosis of colon (292123285) Diverticulosis of colon (K57.30) Active confirmed Plan Of Treatment Future Test Test Name Order Date COLONOSCOPY 05/21/2021 Insurance Providers Payer Name Payer Address Payer Phone Subscriber Number Group Number Insured Name Patient Relationship to Insured Coverage Start Date Coverage End Date HMO BLUE [employer] CLAIMS [address] [place] [address] [phone] [id number] TERESE KRISHNAN Self - patient is the insured Medical (General) History Medical History History ICD Code 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 Screening Colonoscopy 05/2010 with hyperp lastic polyps Denies DM,CVA,Lung disease,renal disease Surgical History Surgery Date(Month/Year) Knee surgery 1982 Bilateral carpal tunnel 2007 Back besnadl-[id number] bulging disc 2010 Bicep tendon surgery on the right 2019
--- OUTSIDE RECORDS SUMMARY | 2024-11-24 10:48 | XMS_ITS | Clinical Summary ---
Author Organization [facility] Address [address] [address] Care Team Providers Care Cashier Greeter Name Role Phone Christopher Garcia MD Primary Care Provider [phone] Allergies Active Allergy Reactions Criticality Noted Date [...] Visit [facility] [address] [place] [address] Samuel Schaffer MD [address] [facility] [address] [place] [address] Health Maintenance Due Date Last Done Comments Pneumococcal Vaccine: 50+ Years (1 of 2 - PCV) 1976 Colorectal Cancer Screening: Annual FOBT 2006 Colorectal Cancer Screening: Colonoscopy 2006 Colorectal Cancer Screening: Sigmoidoscopy 2006 Influenza Vaccine (#1) 2024 , 01/03/2019, 03/19/2018 Hepatitis B Vaccine Aged Out No longe r eligible based on patient's age to complete this topic Insurance [facility] PPO Blue([id number]) [facility] PPO Blue([id number]) Care Teams Cashier Greeter Relationship Specialty Start Date End Date Christopher Garcia MD [address] [place], [place] PCP - General 03/26/20
--- OUTSIDE RECORDS SUMMARY | 2024-11-24 10:48 | XMS_ITS | Encounter Summary ---
Author Organization [facility] Address [address] [place] [address] Phone Care Team Providers Care Electrical System Specialist Name Role Phone Christopher aGrcia MD Primary Care Provider Sivan Mart MD Primary Care Provider + [phone] Reason for Referral * Consultation (Within 1 month) - Closed Specialty Diagnoses / Procedures Referred By Contmargarita t Referred To Contact Diagnoses Lyme arthritis Christopher Garcia MD [address] [place] [address] [place] [address] Phone: tel: fax: Loli Chung MD Phone: tel: fax: [email or web address] Referral ID Status Reason Start Date Expiration Date Visits Re quested Visits Authorized [id number] Closed 02/13/2016 02/12/2017 8 8 Encounter Details Date Type Department Care Team (Latest Contact Info) Description 10/31/2015 Transcribe Orders [facility] [place] [address], [address], [address] [place] [address] Christopher Garcia MD [address] [place] [address] [place] [address] Lyme arthritis (Primary Dx) Social History Tobacco Use Types Packs/Day Years Used Date Smoking Tobacco: Never Assessed Sex and Gender Information Value Date Recorded Sex Assigned at Male 04/18/2022 12:04 PM EST Legal Sex Male 11:37 AM EDT Gender Identity Male 01/16/2020 9:21 AM EST Sexual Orientation Straight 01/16/2020 9: 21 AM EST documented as of this encounter Plan of Treatment Upcoming Encounters Date Type Department Care Team (Late st Contact Info) Description 03/20/2025 11:00 AM EST Office Visit [facility] [address], [address] [place] [address] Loli Chung MD [address] [place] [phone] [email or web address] Scheduled Referrals Name Type Priority Associated Diagnoses Order Schedule Ambulatory referral to [facility] Outpatient Referral Routine Lyme arthritis Ordered: 10/31/2015 documented as of this encounter Visit Diagnoses Diagnosis Lyme arthritis- Primary Lyme disease documented in this encounter Additional Health Concerns Infection Onset Date Last Indicated Resolved Time CoV-Presumed 12/02/2021 12/02/2021 12/23/2021 1:21 AM EDT documented as of this encounter Care Teams Electrical System Specialist Relationship Specialty Start Date End Date Christopher Garcia MD [address] [place] [address] [place] [address] PCP - General Internal Medicine 10/29/15 09/20/24 Sivan Mart MD [address] [place] [address] [place] [address] PCP - General Internal Medicine 09/21/24 documented as of this encounter Additional Source Comments The information contained in this document represents components of the legal health record. It is not the complete legal health record.[facility]
--- OUTSIDE RECORDS SUMMARY | 2024-11-24 10:48 | XMS_ITS | Clinical Summary ---
Author Organization [facility] Address [address] [facility] [address] [place] [phone] Phone Care Team Providers Care Classroom Assistant Name Role Phone Sivan Mart MD Primary [...] 25 mg by mouth daily. Active omega 5-oon-afj-fish oil 1,000 mg (120 mg-180 mg) Cap [...] PM EDT Hospital Encounter [facility] [address] [place] [address] Loli Chung MD Discharge Disposition: Home or Self Care 08/29/2024 11:20 AM EDT Office Visit [facility] [place] [address], [address] [place] [address] Loli Chung MD Other systemic lupus erythematosus [...] Description 03/20/2025 11:00 AM EST Office Visit [facility] [place] [address], [address] [place] [id number] Loli Chung MD [address] [facility] [address] [place] [phone] [email or web address] Health Maintenance Due Date Last Done Comments Adult Td,Tdap Booster 1957 DEPRESSION SCREENING 1969 HEPATITIS C SCREENING 1975 COLONOSCOPY 2002 FIT TEST 2002 FOBT 2002 SIGMOIDOSCOPY 2002 VIRTUAL COLONOSCOPY 2002 ZOSTER VACCINES (1 of 2) 2007 LIPID PANEL 01/04/2024 01/03/2019 INFLUENZA VACCINE (#1) 2024 , 11/27/2022, 01/19/2022, Additional history exists COVID-19 VACCINE ( season) 2024 01/08/2023, 07/04/2021, 01/28/2021, Additional history exists COLOGUARD 01/26/2027 01/27/2024 COLORECTAL CANCER SCREENING 01/26/2027 [...] (09/09/2024 2:00 PM EDT) COLOR Yellow Yellow [facility] CLARITY Clear [facility] GLUCOSE Negative Negative [facility] BILI Negative Negative [facility] KETONES Negative Negative [facility] SPECIFIC GRAVITY >1.030 1.005 - 1.030 [facility] BLOOD Negative Negative [facility] PH 6.0 5.0 - 8.0 [facility] Protein-UA Negative Negative [facility] NITRITE Negative Negative [facility] Leukocyte esterase, ur Negative Negative [facility] Urine (Urine) 09/09/2024 2:0 0 PM EDT 09/09/2024 2:06 PM EDT us Loli Chung MD URINE ORDERABLES Final Resul t [facility] [address] [place] [address] * TOTAL PROTEIN CREATININE RATIO, RANDOM URINE (09/09/2024 1:58 PM EDT) URINE TOTAL PROTEIN 17.0 mg/dL [facility] URINE CREATININE 128 mg/dL [facility] URINE TP CRE RATIO 0.13 0 - 0.19 [facility] Urine (Urine) 09/09/2024 1:5 8 PM EDT 09/09/2024 2:05 PM EDT us Loli Chung MD URINE ORDERABLES Final Resul t [address] [address] * (ABNORMAL) Comprehensive metabolic panel (09/09/2024 1:58 PM EDT) [facility] SODIUM 139 133 - 146 mmol/L [facility] POTASSIUM 4.3 3.3 - 5.1 mmol/L [facility] CHLORIDE 103 96 - 108 mmol/L [facility] CO2 27 21 - 35 mmol/L [facility] BUN 20(H) 6 - 19 mg/dL [facility] CREATININE 0.80 0.5 - 1.5 mg/dL [facility] GLUCOSE 114(H) 70 - 99 mg/dL [facility] ALBUMIN 4.3 3.9 - 4.8 g/dL [facility] TOTAL PROTEIN 7.2 6.5 - 8.0 g/dL [facility] CALCIUM 9.0 8.4 - 10.3 mg/dL [facility] ALKALINE PHOSPHATASE 93 39 - 117 U/L [facility] TOTAL BILIRUBIN 0.8 0.0 - 1.2 mg/dL [facility] AST 33 0 - 37 U/L [facility] ALT 28 0 - 40 U/L [facility] GLOBULIN 2.9 1 - 4.8 g/dL [facility] EGFR 97 >59 mL/min/1.7 3m2 [facility] Comment:Estimated glomerular filtration rate calculated using the CKD-EPI refit equation. ANION GAP 13 10 - 20 mmol/L [facility] Blood 09/09/2024 1:58 PM EDT 09/09/2024 2:06 PM EDT Loli Chung MD LAB BLOOD ORDERABLES Final R esult [facility] [address] [place] [address] * Double stranded DNA antibodies (09/09/2024 1:58 PM EDT) ANTI DSDNA ANTIBODY Negative at 1:10 [facility] Comment: Performing Physician, Michael Christian M.D., [phone] Normal: Negative at 1:10 To interpret a negative test for anti-three affiliated or double stranded DNA antibodies in a [...] ORDERABLES Final R esult Performing Organization Address City/[facility]/ZIP Co de Phone Number [address] [address] * Sedimentation rate (ESR) (09/09/2024 1:58 PM EDT) Pathologist [facility] ESR 14 0 - 20 mm/h [facility] Blood 09/09/2024 1:58 PM EDT 09/09/2024 2:06 PM EDT Loli Chung MD LAB BLOOD ORDERABLES Final R esult [facility] [address] [place] [address] * (ABNORMAL) CBC and differential (09/09/2024 1:58 PM EDT) Pathologist [facility] WBC 6.70 4.00 - 11.00 K/uL [facility] RBC 4.49(L) 4.50 - 5.90 M/uL [facility] HGB 13.7 13.5 - 17.5 g/dL [facility] HCT 40.6(L) 41.0 - 53.0 % [facility] PLT 230 150 - 450 K/uL [facility] MCV 90.4 80.0 - 100.0 fL [facility] MCH 30.5 27.0 - 31.0 pg [facility] MCHC 33.7 32.0 - 36.0 g/dL [facility] RDW 13.2 11.5 - 14.5 % [facility] MPV 9.8 8.4 - 12.0 fL [facility] NRBC 0.00 0.00 /100 WBCs [facility] ABSOLUTE NRBC 0.00 0.00 K/uL [facility] DIFF METHOD Auto [facility] NEUTS 74.9 48.0 - 76.0 % [facility] LYMPHS 16.6(L) 18.0 - 41.0 % [facility] MONOS 5.7 4.0 - 11.0 % [facility] EOS 2.1 0.0 - 5.0 % [facility] BASOS 0.6 0.0 - 1.5 % [facility] Granulocytes, immature (%) 0.1 0.0 - 0.9 % [facility] ABSOLUTE NEUTS 5.02 1.92 - 7.60 K/uL [facility] ABSOLUTE LYMPHS 1.11 0.72 - 4.10 K/uL [facility] ABSOLUTE MONOS 0.38 0.16 - 1.10 K/uL [facility] ABSOLUTE EOS 0.14 0.00 - 0.50 K/uL [facility] ABSOLUTE BASOS 0.04 0.00 - 0.15 K/uL [facility] Granulocytes, immature 0.01 0.00 - 0.09 K/uL [facility] Blood 09/09/2024 1:58 PM EDT 09/09/2024 2:06 PM EDT us Loli Chung MD LAB BLOOD ORDERABLES Final R esult [facility] [address] [place] [address] * Complement C3 (09/09/2024 1:58 PM EDT) C3 122 81 - 157 mg/dl [facility] Blood 09/09/2024 1:58 PM EDT 09/09/2024 2:05 PM EDT Loli Chung MD LAB BLOOD ORDERABLES Final R esult Performing Organization Address City/[facility]/ZIP Co de Phone Number [address] [address] * Complement C4 (09/09/2024 1:58 PM EDT) C4 13 12 - 39 mg/dL [facility] Blood 09/09/2024 1:58 PM EDT 09/09/2024 2:05 PM EDT Loli Chung MD LAB BLOOD ORDERABLES Final R esult Performing Organization Address City/[facility] Co de Phone Number [address] [address] * C-Reactive Protein (09/09/2024 1:58 PM EDT) C REACTIVE PROTEIN <3.0 0.0 - 4.0 mg/L [facility] Blood 09/09/2024 1:58 PM EDT 09/09/2024 2:06 PM EDT Loli Chung MD LAB BLOOD ORDERABLES Final R esult Performing Organization Address City/[facility]/ZIP Co de Phone Number [address] [address] * (ABNORMAL) Lipid panel (01/03/2019 12:23 PM EDT) HDL 42 35 - 100 mg/dL [facility] CHOLESTEROL 191 mg/dL [facility] TRIGLYCERIDES 91 40 - 150 mg/dL [facility] LDL 131(H) 50 - 129 mg/dL [facility] CARDIAC RISK RATIO 4.5 0.0 - 5.0 M [facility] NON-HDL CHOLESTEROL 149 mg/dL [facility] Comment:NCEP ATP III guideli juan suggest a non-HDL cholesterol goal 30 mg/dl higher than the patient-specific LDL goal. 01/03/2019 12:2 3 PM EDT 01/03/2019 12:44 PM EDT Loli Chung MD LAB BLOOD ORDERABLES Final R esult [facility] [address] [place] [address] from Last 3 Months or Most Recently Relevant to Health Maintenance Insurance [facility] MEDICARE PPO BLUE REPLACEMENT MEDICARE PART A & B [facility] MEDICARE PPO BLUE REPLACEMENT MEDICARE PART A & B [facility] MEDICARE PPO BLUE REPLACEMENT [facility] MEDICARE PPO BLUE REPLACEMENT MEDICARE PART A & B [facility] MEDICARE PPO BLUE REPLACEMENT [facility] MEDICARE PPO BLUE REPLACEMENT MEDICARE PART A & B [facility] MEDICARE PPO BLUE REPLACEMENT MEDICARE PART A & B [place] RE[place]AC[place] MEDICARE PART A & B Care Teams Classroom Assistant Relationship Specialty Start Date End Date Sivan Mart MD [address] [place] [address] [place] [address] PCP - General Internal Medicine 09/21/24 Additional Source Comments The information contained in this document represents components of the legal health record. It is not the complete legal health record.[facility]
[2024-11-24 12:14] LABS: Alanine Aminotransferase 36 U/L (0-40); Albumin Level 4.8 g/dL (3.5-5.0); Alkaline Phosphatase 77 U/L (39-117); Anion Gap 13 (12-20); Aspartate Amino Transferase 34 U/L (5-37); Blood Urea Nitrogen 26 mg/dL (9-16); Calcium 9.6 mg/dL (8.4-10.2); Carbon Dioxide 27 mmol/L (22-29); Chloride 105 mmol/L (96-108); Cholesterol 149 mg/dL (<200); Estimated Glomerular Filt Rate > 60; HDL Cholesterol 55 mg/dL (>40); Potassium 4.2 mmol/L (3.3-5.1); Sodium 141 mmol/L (135-145); Total Protein 7.7 g/dL (6.5-8.0); Triglycerides 39 mg/dL (<150)
== END 2024-11-24 09:19 | disposition home or self-care (01) ==
LOC: HO.WFDLDS 09:18
PROVIDERS: Visit Provider Physician Assistant
DX: Z01.89 Encounter for other specified special examinations (principal); M32.9 Systemic lupus erythematosus, unspecified; N18.30 Chronic kidney disease, stage 3 unspecified; E78.5 Hyperlipidemia, unspecified; Z12.5 Encounter for screening for malignant neoplasm of prostate
CPT/HCPCS: 36415; 80053; 80061; 84153; 84443